=== PATIENT | female | born 1980 | race Hispanic/Latino ===

== ENCOUNTER 2021-10-17 09:19 | Emergency (ER) | payer OTHER ==
[~2021-10-17] VITALS: Ht 177.8 cm; Wt 88.5 kg
[2021-10-17] MEDS ORDERED: HYDROCODONE/ACETAMINOPHEN 10/325 MG TAB ONE (09:55)
[2021-10-17] MEDS ORDERED: ORPHENADRINE CITRATE 30 MG/ML ML ONE (09:55)
[2021-10-17] MEDS ORDERED: KETOROLAC 60 MG VIAL (30MG/ML) ONE (09:55)
[2021-10-17] MEDS ORDERED: HYDROCODONE/ACETAMINOPHEN 10/325 MG TAB PO SCH (10:00)
[2021-10-17] MEDS ORDERED: ORPHENADRINE CITRATE 30 MG/ML ML IM SCH (10:00)
[2021-10-17] MEDS ORDERED: KETOROLAC 60 MG VIAL (30MG/ML) IM SCH (10:00)
[2021-10-17] MEDS ORDERED: HYDROMORPHONE 1 MG INJ IM SCH (11:30)
[2021-10-17] MEDS ORDERED: HYDROMORPHONE 1 MG INJ ONE (11:36)
[2021-10-17] MEDS ORDERED: META800T72 PO (12:01)
[2021-10-17] MEDS ORDERED: ACET1TAB25 PO (12:01)
[2021-10-17 12:19] VITALS: BP 124/75
== END 2021-10-17 12:20 | disposition home or self-care (01) ==
LOC: EDH 09:19
DX: S33.5XXA Sprain of ligaments of lumbar spine, initial encounter (principal); Z79.1 Long term (current) use of non-steroidal anti-inflammatories (NSAID); X58.XXXA Exposure to other specified factors, initial encounter; Y93.89 Activity, other specified; Y92.89 Other specified places as the place of occurrence of the external cause; Y99.8 Other external cause status
CPT/HCPCS: 72131; 96372 ×3; 99284; J1170; J1885; J2360

== ENCOUNTER 2025-01-02 15:03 | Emergency (ER) | payer BC ==
[~2025-01-02] VITALS: Ht 177.8 cm; Wt 72.6 kg
[~2025-01-02 15:03] MED LIST: ACET-2079 PO; META800T72 PO
[2025-01-02] MEDS: 0.9%NACL 1000ML 1,000 ML IV ONE (15:59)
[2025-01-02] MEDS: diazePAM 5 MG/ML 2 ML SYG IVP ONE (15:59)
[2025-01-02 16:02] LABS: BASOPHILS # (AUTO) 0.01 K/uL (0.00-0.20); BASOPHILS % (AUTO) 0.1 % (0.0-5.0); EOSINOPHILS # (AUTO) 0.01 K/uL (0.00-0.70); EOSINOPHILS % (AUTO) 0.1 % (0.0-8.0); HEMATOCRIT 38.4 % (36-48); IMMATURE GRANULOCYTE ABSOLUTE 0.03 K/uL (0-1); LYMPHOCYTES # (AUTO) 1.3 K/uL (1.0-4.8); MEAN CORPUSCULAR HEMOGLOBIN 29.3 pg (27.0-33.0); MEAN CORPUSCULAR HGB CONC 33.6 g/dL (32.0-36.0); MEAN CORPUSCULAR VOLUME 87.1 fL (79-99); MONOCYTES # (AUTO) 0.9 K/uL (0.1-1.0); MONOCYTES % (AUTO) 9.9 % (3.0-13.0); NEUTROPHILS # (AUTO) 6.5 K/uL (1.8-7.7); NEUTROPHILS % (AUTO) 74.6 % (40.0-77.0); PLATELET COUNT (AUTO) 170 K/uL (130-400); RED BLOOD CELL COUNT(AUTO) 4.41 MIL/uL (4.00-5.50); WHITE BLOOD COUNT (AUTO) 8.7 K/uL (4.8-10.8)
--- NOTE | 2025-01-02 16:17 | HMCIMG ---
Exam Type: CT HEAD/BRAIN W/O CONTRAST Clinical Information: fall Comparison: None CT Dose Index (CTDI): 57.33 mGy Dose Length Product (DLP): 956.79 total mGy-cm Findings: The examination is unremarkable. Miller-white matter junction is preserved. No intra or extra axial lesions or fluid collections are seen. Specifically, miller and white matter are normal in signal characteristics with normal caliber of ventricles and periventricular cisterns with no evidence of intra or or extra-axial hemorrhage, lacunar infarct, or major territorial infarct, mass, or other abnormality. There are no infarcts. There are no hemorrhages. Periventricular white matter locations are preserved. The orbital contents and structures of the posterior fossa are intact. Impression: Normal CT of the head. This study was performed using dose reduction techniques to include automated exposure control and/or adjustment of the mA and/or kV according to patient size.
[2025-01-02 16:18] LABS: CREATININE 1.1 mg/dL (0.5-1.0); POTASSIUM 3.9 mmol/L (3.5-5.1)
--- NOTE | 2025-01-02 16:19 | HMCIMG ---
Exam Type: CT cervical spine without contrast Clinical Information: fall Comparison: None Technique: Spiral axial images were performed from the base of the skull down to the thoracic vertebral bodies. Both sagittal and coronal reconstructions were performed. CT Dose Index (CTDI): 12.85 mGy Dose Length Product (DLP): 282.6 total Findings: There is straightening of the spine consistent with spasm. There are no fractures. No facet hypertrophy. The prevertebral soft tissues are normal. IMPRESSION: Cervical spasm. No fractures. This study was performed using dose reduction techniques to include automated exposure control and/or adjustment of the mA and/or kV according to patient size.
[2025-01-02 16:27] LABS: BILIRUBIN,DIRECT 0.1 mg/dL (0.0-0.3); BILIRUBIN,TOTAL 0.4 mg/dL (0.2-1.0)
[2025-01-02 16:40] LABS: B-TYPE NATRIURETIC PEPTIDE 42 pg/mL (0-100)
[2025-01-02] MEDS: morPHINE 2 MG SYG ONE (16:47)
--- NOTE | 2025-01-02 17:55 | ERN ---
ED Note History of Present Illness Stated Complaint: SYNCOPE POST MUCLE RELAXER Chief Complaint: Syncope Time Seen by MD: 15:05 Dictation: 44 y/o F presenting to the ER by EMS s/p a syncopal episode who would while at work, hit back of her head. EMS reports your sugar was in the 50s gave an amp and it increased into the 100s. The patient denies any chest pain or shortness of breath however she has does have a headache and neck pain. Allergies: Coded Allergies: morphine (Unverified Allergy, Unknown, 01/02/25) Home Meds Active Scripts Metaxalone (Skelaxin) 800 Mg Tablet, 800 MG PO TIDP PRN for MUSCLE SPASMS, #20 TAB 0 Refills Prov:ANAID BUTT MD 10/17/21 Acetaminophen with Codeine (Acetaminophen-Cod #3 Tablet) 1 Each Tablet, 1-2 TAB PO Q6H PRN for PAIN LEVEL 7 TO 10, #20 TAB 0 Refills Prov:ANAID BUTT MD 10/17/21 Past Medical History Past Medical History: No Pertinent History Additional Past Medical Hx: BACK PAIN Surgical History: None Social History: Other Review of System Dictation Constitutional: Negative for fever,chills, and weight loss Eyes: Negative for injury, pain,redness, and discharge ENT: Negative for injury,pain or swelling Cardiovascular: Negative for chest pain, palpitations, and edema Respiratory: Negative for shortness of breath, cough, and wheezing, Abdomen/GI: Negative for abdominal pain, nausea, vomiting, diarrhea, and constipation Back: Negative for injury and pain : Negative for injury, bleeding and discharge MS/Extremity: Negative for injury and deformity Skin: Negative for rash, and discoloration Neuro: Per HPI Initial Vital Sign VS Vital Signs Date Time Temp Pulse Resp B/P (MAP) Pulse Ox O2 Delivery O2 Flow Rate FiO2 01/02/25 15:04 66 20 139/78 99 0 01/02/25 18:41 97.9 Room Air* 21 Physical Exam Dictation General: awake, alert, NAD Head/Face: Normocephalic, atraumatic Eyes: PERRL, EOMI, vision at baseline ENT: oral cavity clear, TMs clear, no signs of infection Neck: Trachea midline, supple, no nuchal rigidity Cardiovascular: RRR, normal S1/S2, No MRGs, no JVD Respiratory: CTAB, no respiratory distress, No rales or wheezes Abdomen: Soft, non-tender, non-distended, normal bowel sounds, no guarding or rebound. Skin: Warm, dry, normal turgor, no rash MS/Extremity: Pulses equal, no cyanosis, neurovascular intact, FROM Neuro: COAx4, GCS 15, strength 5/5, CN 2-12 intact, normal cerebellar exam, normal gait, Psych: Normal behavior, mood, and affect normal Results (Laboratory/Radiology) Laboratory/Radiology Laboratory Tests Test 01/02/25 15:57 White Blood Count 8.7 K/uL (4.8-10.8) Red Blood Count 4.41 MIL/uL (4.00-5.50) Hemoglobin 12.9 g/dL (12.0-16.0) Hematocrit 38.4 % (36-48) Mean Corpuscular Volume 87.1 fL (79-99) Mean Corpuscular Hemoglobin 29.3 pg (27.0-33.0) Mean Corpuscular Hemoglobin Concent 33.6 g/dL (32.0-36.0) Red Cell Distribution Width 14.0 % (11.0-15.5) Platelet Count 170 K/uL (130-400) Mean Platelet Volume 11.8 fL (7.5-10.5) H Immature Granulocyte % (Auto) 0.3 % (0-1) Neutrophils (%) (Auto) 74.6 % (40.0-77.0) Lymphocytes (%) (Auto) 15.0 % (21.0-51.0) L Monocytes (%) (Auto) 9.9 % (3.0-13.0) Eosinophils (%) (Auto) 0.1 % (0.0-8.0) Basophils (%) (Auto) 0.1 % (0.0-5.0) Neutrophils # (Auto) 6.5 K/uL (1.8-7.7) Lymphocytes # (Auto) 1.3 K/uL (1.0-4.8) Monocytes # (Auto) 0.9 K/uL (0.1-1.0) Eosinophils # (Auto) 0.01 K/uL (0.00-0.70) Basophils # (Auto) 0.01 K/uL (0.00-0.20) Absolute Immature Granulocyte (auto 0.03 K/uL (0-1) Nucleated Red Blood Cells 0.0 % (0.0-0.19) Sodium Level 137 mmol/L (136-145) Potassium Level 3.9 mmol/L (3.5-5.1) Chloride Level 101 mmol/L (101-111) Carbon Dioxide Level 24 mmol/L (21-32) Blood Urea Nitrogen 15 mg/dL (7-18) Creatinine 1.1 mg/dL (0.5-1.0) H Glomerular Filtration Rate Calc 64 mL/min (>90) Random Glucose 103 mg/dL (70-105) Total Calcium 8.7 mg/dL (8.5-10.1) Total Bilirubin 0.4 mg/dL (0.2-1.0) Direct Bilirubin 0.1 mg/dL (0.0-0.3) Aspartate Amino Transf (AST/SGOT) 15 U/L (10-37) Alanine Aminotransferase (ALT/SGPT) 14 U/L (12-78) Alkaline Phosphatase 63 U/L (50-136) Total Creatine Kinase 105 U/L (21-232) Troponin I High Sensitivity < 4 ng/L (4-50) L B-Type Natriuretic Peptide 42 pg/mL (0-100) Total Protein 7.0 g/dL (6.0-8.3) Albumin 4.0 g/dL (3.5-5.0) Lipase 85 U/L (16-77) H ED Course ED Course Orders Procedure Category Date Status Time 12 Lead Ekg Tracing- EKG 01/02/25 Logged Technical 15:12 B-Type Natriuretic LAB 01/02/25 Complete Peptide 15:12 Basic Metabolic Panel LAB 01/02/25 Complete 15:12 Cbc With Differential LAB 01/02/25 Complete 15:12 Hepatic Function Panel LAB 01/02/25 Complete 15:12 Creatine Kinase, Total LAB 01/02/25 Complete 15:12 Lipase LAB 01/02/25 Complete 15:12 Troponin I High LAB 01/02/25 Complete Sensitivity 15:12 Ct Head/Brain W/O CT 01/02/25 Resulted Contrast 15:12 Urinalysis Profile LAB 01/02/25 Logged 15:12 Ct Cervical Spine W/O CT 01/02/25 Resulted Contrast 15:12 Diazepam 5 Mg/Ml 2 Ml PHA 01/02/25 Complete Syg (Valium 5 Mg/M 15:30 0.9%Nacl 1000ml (Ns PHA 01/02/25 Complete 1000ml) 15:30 Ketorolac PHA 01/02/25 Complete Tromethamine 15mg/Ml 16:20 Hydroxyzine 50mg Vial PHA 01/02/25 Complete (Atarax 50mg Inj) 16:20 Morphine 2mg Syg PHA 01/02/25 Complete (Morphine 2mg Syg) 16:20 Hydroxyzine 50mg Vial PHA 01/02/25 In Process (Atarax 50mg Inj) 17:00 Ketorolac PHA 01/02/25 Complete Tromethamine 15mg/Ml 17:00 Hydromorphone 0.5mg PHA 01/02/25 Complete Syg (Dilaudid 0.5mg 18:30 Current Medications Medications (Trade) Dose Ordered Sig/Maksim Route PRN Reason Start Time Stop Time Status Last Admin Dose Admin Diazepam (VALium 5 MG/ML 2 ML SYG) 2 mg ONCE ONCE IVP 01/02/25 15:30 01/02/25 15:31 DC 01/02/25 15:59 Hydromorphone HCl (DiLAUDid 0.5MG INJ) 0.5 mg ONCE ONCE IVP 01/02/25 18:30 01/02/25 18:31 DC 01/02/25 18:15 Hydroxyzine HCl (ATArax 50MG INJ) 50 mg ONCE IM 01/02/25 17:00 02/01/25 16:59 01/02/25 18:05 Hydroxyzine HCl (ATArax 50MG INJ) 50 mg STK-MED ONCE IM 01/02/25 16:20 01/02/25 16:20 DC Ketorolac Tromethamine (toRADol) 15 mg ONCE ONCE IV 01/02/25 17:00 01/02/25 17:01 DC 01/02/25 18:04 Ketorolac Tromethamine (toRADol) 15 mg STK-MED ONCE .ROUTE 01/02/25 16:20 01/02/25 16:20 DC Morphine Sulfate (morPHINE 2MG SYG) 2 mg STK-MED ONCE .ROUTE 01/02/25 16:20 01/02/25 16:20 DC Sodium Chloride 1,000 ml @ 0 mls/hr ONCE ONCE IV 01/02/25 15:30 01/02/25 15:31 DC 01/02/25 15:59 Vital Signs Date Time Temp Pulse Resp B/P (MAP) Pulse Ox O2 Delivery O2 Flow Rate FiO2 01/02/25 18:41 97.9 78 18 130/62 99 Room Air* 0 21 01/02/25 15:04 66 20 139/78 99 0 Medical Decision Making MDM MDM: Differential diagnosis: Rationale: Tests considered and ordered secondary to shared decision making in clude: Previous outside records reviewed: Old ER visits. Risk of complication and/or morbidity or mortality of patient management: None Medications-Per medication reconciliation Need for hospitalization: Patient does not meet criteria for hospitalization. Need for emergency major/minor surgery: No There are no social concerns with this patient. Prescription drug management Prescriptions will include symptomatic care Patient's prior external medical records from other ER visits were reviewed by me as indicated. Prior testing and results from previous visits were reviewed. Prior tests were taken into account with medical decision making and resource utilization, independent historian/historians were used to obtain complete medical history. I independently interpreted the test that were performed, results were reviewed by me and considered findings on radiology if ordered. Medical management and examination interpretation discussions were had by me with other qualified healthcare professionals as indicated for the patient's care. Stable exam negative workup symptoms improved stable for discharge. DX & DISP Disposition: Discharge Departure Impression: Primary Impression: Syncope and collapse Additional Impression: Head injury Condition: Stable Referrals: SELF,REFERRAL (PCP) MAXIMO SCHNEIDER MD Jan 02, 2025 17:55
[2025-01-02] MEDS: hydrOXYzine 50MG VIAL 50 MG/ML VIAL IM ONE (18:04)
[2025-01-02] MEDS: hydrOXYzine 50MG VIAL 50 MG/ML VIAL IM SCH (18:04)
[2025-01-02] MEDS: ketOROlac 15MG/ML VIAL (15MG/ML) ONE (18:04)
[2025-01-02] MEDS: ketOROlac 15MG/ML VIAL (15MG/ML) IV ONE (18:04)
[2025-01-02] MEDS: hydroMORPHone 0.5 MG SYG (0.5MG/0.5ML) IVP ONE (18:15)
[2025-01-02 18:41] VITALS: BP 130/62; PULSE 78; RESP 18; TEMP 97.9; O2SAT 99
--- NOTE | 2025-01-02 18:42 | NUR ---
PT STATES FEELING BETTER AND ANXIETY RELIEVED. CONTINUES WITH BACK PAIN AFTER GIVEN SEVERAL IV PAIN MEDS. VOICED THAT SHE PREFERS TO GO HOME NOW.
--- NOTE | 2025-01-02 19:05 | NUR ---
PT LEFT WITH DISCHARGE INSTRUCTIONS. DID NOT WANT TO WAIT ANY LONGER. IV DISCONTINUED
--- NOTE | 2025-01-02 20:37 | EKG ---
[facility] Test Date: 2025-01-02 Test Time: 15:38:11 Pat Name: MAYTE GORE Department: [facility] Room: Gender: F [employer]: [id number] : 1980 Requested By: MAXIMO SCHNEIDER Order Number: [id number] Reading MD: Marleny Martines Measurements Intervals [place] Rate: 69 P: 70 AL: 145 QRS: 62 QRSD: 83 T: 58 QT: 423 QTc: 450 Interpretive Statements Sinus rhythm Atrial premature complex Probable left atrial enlargement No previous ECG available for comparison Electronically Signed On 01-04-2025 16:44:36 CDT by Marleny Martines Please click the below link to view image of tracing.
== END 2025-01-02 19:06 | disposition home or self-care (01) ==
LOC: EDH 15:03
DX: S09.90XA Unspecified injury of head, initial encounter (principal); R55 Syncope and collapse; Z88.5 Allergy status to narcotic agent; W22.8XXA Striking against or struck by other objects, initial encounter; Y93.89 Activity, other specified; Y92.89 Other specified places as the place of occurrence of the external cause
CPT/HCPCS: 99285; 70450; 96374; 96375; 96361; 82550; 80076; 84484; 80048; 83880; 83690; 85025; 36415; 72125; 93005; 96372 ×2; J1885; J1171; J3410; J7030; J3360; J2270